=== PATIENT | male | born 1955 | race Two or more races ===

== ENCOUNTER 2019-12-28 08:48 | Inpatient (IN) | payer MEDICARE ==
[~2019-12-28] VITALS: Ht 170.2 cm; Wt 69.0 kg
[2019-12-28 10:26] LABS: Basophils # (auto) 0.1 10 ^3/uL (0-0.2); Basophils % (auto) 0.3 % (0.0-2.0); Eosinophils # (auto) 0 10 ^3/uL (0-0.8); Eosinophils % (auto) 0.1 % (0.0-7.0); Hematocrit 35.3 % (41.0-53.0); Hemoglobin 12.3 g/dL (13.5-17.5); Lymphocytes # (auto) 0.4 10 ^3/uL (0.4-5.4); Lymphocytes % (auto) 2.5 % (10.0-50.0); Mean Corpuscular Hemoglobin 34.4 pg (28.0-32.0); Mean Corpuscular Hgb Conc. 34.9 g/dL (32.0-36.0); Mean Corpuscular Volume 98.5 fL (80.0-100.0); Monocytes # (auto) 0.6 10 ^3/uL (0-1.3); Monocytes % (auto) 3.8 % (0.0-12.0); Neutrophils # (auto) 14.9 10 ^3/uL (1.6-8.6); Neutrophils % (auto) 93.3 % (37.0-80.0); Platelet Count (auto) 362 10^3/uL (140-450); Red Blood Cells 3.58 10^6/uL (4.5-5.90); Red Cell Distribution Width 14.1 % (11.8-14.3)
[2019-12-28 10:45] LABS: Albumin 2.9 g/dL (3.4-5.0); Anion Gap 9 (5-15); Blood Urea Nitrogen 8 mg/dL (7-18); Calcium 9.1 mg/dL (8.5-10.1); Carbon Dioxide 23 mmol/L (21-32); Chloride 94 mmol/L (98-107); Glucose 134 mg/dL (74-106); Lipase 96 U/L (73-393); Potassium 3.5 mmol/L (3.5-5.1); Sodium 126 mmol/L (136-145)
[2019-12-28 10:53] LABS: Alanine Aminotransferase 128 U/L (16-61); Alkaline Phosphatase 658 U/L (45-117); Aspartate Aminotransferase 212 U/L (15-37); BUN/Creatinine Ratio 7.1; Bilirubin, Total 6.3 mg/dL (0.2-1.0); GFR African American 83 mL/min; GFR Non-African American 69 mL/min; Total Protein 7.6 g/dL (6.4-8.2)
[2019-12-28] MEDS ORDERED: SODIUM CHLORIDE 0.9% 1,000 ML IV ONE (17:00)
[2019-12-28] MEDS ORDERED: cefTRIAXone 1GM/50ML D5W 50 ML IV ONE ×2 (17:00→17:15)
[2019-12-28] MEDS ORDERED: ALUM & MAG HYDROX-SIMETH LIQ(MAALOX) 30 ML PO PRN (17:15)
[2019-12-28] MEDS: SODIUM CHLORIDE 0.9% 1,000 ML IV SCH (17:15)
[2019-12-28] MEDS ORDERED: ACETAMINOPHEN 325 MG TAB PO PRN (17:15)
[2019-12-28] MEDS ORDERED: LORazepam 0.5 MG TAB PO PRN (17:15)
[2019-12-28] MEDS ORDERED: HYDROcodone-ACET 5/325MG TAB PO PRN (17:15)
[2019-12-28] MEDS ORDERED: LACTATED RINGER'S 1,000 ML IV ONE (17:15)
[2019-12-28] MEDS ORDERED: DOCUSATE SOD 100 MG CAP PO PRN (17:15)
[2019-12-28] MEDS ORDERED: MORPHINE SULF INJ 2 MG/ML SYRINGE 1ML IV PRN ×2 (17:15)
[2019-12-28] MEDS ORDERED: NITROGLYCERIN 0.4 MG SL TAB SL PRN (17:15)
[2019-12-28] MEDS ORDERED: ONDANSETRON HCL 4 MG/2 ML VIAL IV PRN (17:15)
[2019-12-28] MEDS ORDERED: metroNIDAZOLE 500MG/100ML 100 ML IV ONE (18:00)
[2019-12-28] MEDS ORDERED: PANTOPRAZOLE 40 MG/10 ML VIAL INJ IV ONE (18:30)
[2019-12-28] MEDS ORDERED: SUCRALFATE 1 GM TAB PO ONE (18:30)
[2019-12-28] MEDS ORDERED: CHOLESTYRAMINE 4 GM POWDER PO ONE (18:30)
--- NOTE | 2019-12-28 18:30 | NUR ---
Telemetry admit from [facility] admitted to Telemetry unit after SBAR received. Patient oriented to DARIO VALLE, RN primary RN, unit, room, bed, and unit policies regarding patient care and visiting hours. Patient now on continuous telemetry monitoring, tele box # [id number] and telemetry reading on arrival to unit is ST. Patient weighed by bedscale and encouraged to call if they need something. All questions and concerns addressed, patient verbalized understanding.
--- NOTE | 2019-12-28 18:52 | NUR ---
ADMISSION PATIENT REPORTS "NOT TAKING ANY HOME MEDICATIONS" NOTIFIED PRIMARY RN
[2019-12-28] MEDS ORDERED: INFLUENZA QUAD 2020-2021 0.5 ML SYRG IM ONE (19:00)
[2019-12-28 19:10] VITALS: BP 144/60
--- NOTE | 2019-12-28 19:30 | NUR ---
Opening Shift Note Assumed care of patient, awake and alert. No S/S of distress/SOB or pain. Safety measures in place, bed in lowest locked position, bed rails raised x2, call light within reach. Pt states the abd pain has subsided at this time. All needs and questions addresed at this time. Instructed on POC and to call for assist PRN, will continue to monitor for changes Q1hr and PRN.
[2019-12-28 22:00] VITALS: BP 126/74
[2019-12-28] MEDS ORDERED: IPRATROPIUM BROM 0.5 MG/2.5ML INH SOL NEB SCH (22:00)
[2019-12-28] MEDS ORDERED: ATORVASTATIN 20 MG TAB PO SCH (22:00)
[2019-12-28] MEDS: SUCRALFATE 1 GM TAB PO SCH (22:06)
[2019-12-28 22:37] LABS: Cholesterol 125 mg/dL (< 200); HDL Cholesterol 14 mg/dL (40-59); LDL Cholesterol 87 mg/dL (< 100); Triglycerides 94 mg/dL (< 150)
[2019-12-28] MEDS ORDERED: IPRATROPIUM BROM 0.5 MG/2.5ML INH SOL NEB PRN (23:30)
[2019-12-29 05:00] VITALS: BP 139/80
[2019-12-29] MEDS: metroNIDAZOLE 500MG/100ML 100 ML IV SCH ×3 (06:29→22:00)
[2019-12-29] MEDS: SUCRALFATE 1 GM TAB PO SCH ×4 (06:30→22:00)
--- NOTE | 2019-12-29 07:45 | NUR ---
Opening Shift Note Assumed care of patient, awake and alert. No S/S of distress/SOB or pain. Instructed on POC and to call for assist PRN, will continue to monitor for changes Q1hr and PRN. Fall precautions in place per safety protocol.
[2019-12-29 08:04] VITALS: BP 122/71
--- NOTE | 2019-12-29 09:33 | NUR ---
ASSESSED PT FOR PRN MED NEB TX, PT AWAKE AND ALERT AND FOLLOWING COMMANDS. PT ON RA WITH SPO2 99%, HR 71, RR 15 WITH CLEAR DIMINISHED BS. MED NEB NOT INDICATED AT THIS TIME. ATROVENT PRN WILL BE DC'D DUE TO PT NOT TAKING PRN MED NEB IN 24HRS.
[2019-12-29 09:46] LABS: INR 0.98 (0.9-1.15); Partial Thromboplastin Time 24.7 sec (23.0-31.2)
[2019-12-29] MEDS: SODIUM CHLORIDE 0.9% 1,000 ML IV SCH (09:55)
[2019-12-29] MEDS: ENOXAPARIN SOD 40 MG/0.4 ML SYRINGE SC SCH (10:00)
[2019-12-29] MEDS: cefTRIAXone 1GM/50ML D5W 50 ML IV SCH (10:09)
[2019-12-29] MEDS: PANTOPRAZOLE 40 MG/10 ML VIAL INJ IV SCH (10:10)
[2019-12-29] MEDS: CHOLESTYRAMINE 4 GM POWDER PO SCH (11:00)
[2019-12-29 12:17] LABS: Urine Bacteria FEW /hpf (None Seen); Urine Blood Negative /uL (Negative); Urine Specific Gravity 1.008 (1.001-1.035); Urine WBC 1 /hpf (0 - 3)
[2019-12-29 12:26] LABS: Alcohol, Urine < 3.0 mg/dL (0-10); Amphetamine Screen, Urine NEGATIVE (NEGATIVE); Barbiturate Scree,Urine NEGATIVE (NEGATIVE); Benzodiazephine Screen, Urine NEGATIVE (NEGATIVE); Cannabinoid Screen, Urine NEGATIVE (NEGATIVE); Cocaine Screen, Urine NEGATIVE (NEGATIVE); Opiate Scree,Urine NEGATIVE (NEGATIVE); Phencyclidine Screen, Urine NEGATIVE (NEGATIVE)
[2019-12-29 12:30] VITALS: BP 141/82
--- NOTE | 2019-12-29 15:57 | NUR ---
ss consult Per consult no pcp. Twila Lopez seen patient aand set patient up with Dr Guy for new PCP. Addendum: 12/29/19 at 1558 by Twila Bazzi Amended: Links added.
[2019-12-29 16:24] VITALS: BP 136/86
--- NOTE | 2019-12-29 19:40 | NUR ---
Opening Shift Note Assumed care of patient. Pt is sleeping comfortably in bed, on room air with even and unlabored respirations. No S/S of distress/SOB or pain. Bed locked, in lowest position, call light within reach, side rails up x2. Will continue to monitor for changes Q1hr and PRN.
[2019-12-29 22:00] VITALS: BP 147/58
[2019-12-30] MEDS: SODIUM CHLORIDE 0.9% 1,000 ML IV SCH ×2 (03:00→21:03)
[2019-12-30 05:00] VITALS: BP 135/71
[2019-12-30] MEDS: SUCRALFATE 1 GM TAB PO SCH ×4 (06:35→21:36)
[2019-12-30] MEDS: metroNIDAZOLE 500MG/100ML 100 ML IV SCH ×3 (06:35→21:35)
[2019-12-30 08:16] VITALS: BP 149/79
[2019-12-30] MEDS: ENOXAPARIN SOD 40 MG/0.4 ML SYRINGE SC SCH (10:00)
[2019-12-30] MEDS: cefTRIAXone 1GM/50ML D5W 50 ML IV SCH (10:07)
[2019-12-30] MEDS: PANTOPRAZOLE 40 MG/10 ML VIAL INJ IV SCH (10:08)
[2019-12-30] MEDS: CHOLESTYRAMINE 4 GM POWDER PO SCH (11:00)
[2019-12-30 11:54] VITALS: BP 144/78
--- NOTE | 2019-12-30 12:14 | NUR ---
Nutrition Assessment Est energy needs 6182-8990 kcal (25-30 kcal/kg BW 66.3kg) Est protein needs 53-66g (0.8-1g/kg BW 66.3kg) Will monitor and reassess prn. Addendum: 12/30/19 at [address] Amended: Links added.
--- NOTE | 2019-12-30 14:06 | NUR ---
ERCP ERCP rescheduled for tomorrow 12/30. Patient placed on a clear liquid diet and informed patient. Will cont to monitor patient.
[2019-12-30 16:35] VITALS: BP 164/76
[2019-12-31 05:00] VITALS: BP 158/83
[2019-12-31] MEDS: SUCRALFATE 1 GM TAB PO SCH ×4 (06:53→21:38)
[2019-12-31] MEDS: metroNIDAZOLE 500MG/100ML 100 ML IV SCH ×3 (06:53→21:38)
[2019-12-31 08:40] VITALS: BP 148/73
--- NOTE | 2019-12-31 08:40 | NUR ---
Dr. Benitez at bed side
[2019-12-31] MEDS: PANTOPRAZOLE 40 MG/10 ML VIAL INJ IV SCH (08:56)
[2019-12-31] MEDS: cefTRIAXone 1GM/50ML D5W 50 ML IV SCH (08:57)
[2019-12-31] MEDS: ENOXAPARIN SOD 40 MG/0.4 ML SYRINGE SC SCH (08:57)
[2019-12-31] MEDS: CHOLESTYRAMINE 4 GM POWDER PO SCH (08:58)
[2019-12-31] MEDS: SODIUM CHLORIDE 0.9% 1,000 ML IV SCH (12:02)
[2019-12-31 12:49] VITALS: BP 154/84
[2019-12-31] MEDS ORDERED: IOHEXOL 300 MG/ML 100ML BOTTLE IJ ONE (14:27)
--- NOTE | 2019-12-31 14:41 | NUR ---
Patient taken for scheduled procedure with MD Marcus by PACU RNs. No s/s of pain/sob or discomfort
[2019-12-31] MEDS ORDERED: SUCCINYLCHOLINE CHLORIDE 20 MG/ML 10ML VIAL IV ONE (15:18)
[2019-12-31] MEDS ORDERED: fentaNYL CITRATE 100 MCG/2 ML VL ONE (15:19)
[2019-12-31] MEDS ORDERED: MIDAZOLAM HCL 1MG/1ML-2 ML VIAL ONE (15:20)
[2019-12-31] MEDS ORDERED: ROCURONIUM 10MG/ML 10ML VIAL IV ONE (15:24)
[2019-12-31] MEDS ORDERED: PROPOFOL 10 MG/ML 20 ML IV ONE (16:13)
[2019-12-31] MEDS ORDERED: ONDANSETRON HCL 4 MG/2 ML VIAL ONE (16:13)
[2019-12-31] MEDS ORDERED: GLYCOPYRROLATE 0.2 MG/ML 1ML VIAL ONE (16:57)
[2019-12-31] MEDS ORDERED: NEOSTIGMINE 1 MG/ML INJ (10mg/10ML VIAL) ONE (16:57)
[2019-12-31] MEDS ORDERED: hydrALAZINE HCL 20 MG/ML VL IV PRN (17:00)
[2019-12-31] MEDS ORDERED: HYDROmorphone HCL 2 MG/ML VL IV PRN ×2 (17:00)
[2019-12-31] MEDS ORDERED: METOCLOPRAMIDE HCL 5MG/ml INJ 2ml VIAL IV PRN (17:00)
[2019-12-31] MEDS ORDERED: LABETALOL HCL 5 MG/ML 4ML SYRINGE IV PRN (17:00)
[2019-12-31] MEDS: hydrALAZINE HCL 25 MG TAB PO PRN (17:57)
--- NOTE | 2019-12-31 19:15 | NUR ---
OPENING SHIFT NOTE Assumed care of patient who is alert and oriented currently on RA with no S/S of distress or SOB noted at this time. Denies any pain at this time. Currently running NS @60mls/hr, IV is patent and intact. POC discussed with patient in detail, all questions answered, patient verbalized understanding. Patient encouraged to call for assistance as needed. Patient is ambulatory without assistance. Bed locked in lowest position side rails up x2. Call light within reach. Will continue to monitor PRN/Q1hr.
--- NOTE | 2019-12-31 21:00 | NUR ---
IV REMOVAL Patient complained of IV leaking, upon assessment IV had become dislodged. IV DC'd with clean sterile technique, catheter fully intact. Pressure dressing applied to site. Patient tolerated well.
--- NOTE | 2019-12-31 21:10 | NUR ---
IV INSERTION IV access obtained, via clean sterile technique by inserting 20 gauge catheter at the left AC after 1 attempt. IV secured properly. No trauma to site. Patient tolerated well.
[2019-12-31 22:51] VITALS: BP 138/84
[2020-01-01] MEDS: SODIUM CHLORIDE 0.9% 1,000 ML IV SCH (04:35)
[2020-01-01 05:28] VITALS: BP 145/78
[2020-01-01] MEDS: metroNIDAZOLE 500MG/100ML 100 ML IV SCH ×3 (05:39→21:32)
[2020-01-01] MEDS: SUCRALFATE 1 GM TAB PO SCH ×4 (06:31→21:31)
[2020-01-01 06:56] LABS: Albumin 2.3 g/dL (3.4-5.0); Calcium 8.1 mg/dL (8.5-10.1); Potassium 3.3 mmol/L (3.5-5.1)
[2020-01-01 06:59] LABS: BUN/Creatinine Ratio 6.8
[2020-01-01 07:02] LABS: Bilirubin, Total 2.1 mg/dL (0.2-1.0); Total Protein 6.2 g/dL (6.4-8.2)
--- NOTE | 2020-01-01 07:32 | NUR ---
CARE ENDORSED TO DAY SHIFT RN
--- NOTE | 2020-01-01 08:15 | NUR ---
OPENING SHIFT NOTE: PATIENT RESTING IN BED, A/OX4 UPDATED ON PLAN OF CARE. VERBALIZED UNDERSTANDING. DENIES ANY PAIN OR DISCOMFORT AT THIS TIME. CALL LIGHT WITHIN REACH, WILL CONTINUE TO MONITOR.
[2020-01-01] MEDS: cefTRIAXone 1GM/50ML D5W 50 ML IV SCH (08:45)
[2020-01-01] MEDS: ENOXAPARIN SOD 40 MG/0.4 ML SYRINGE SC SCH (08:46)
[2020-01-01] MEDS: PANTOPRAZOLE 40 MG/10 ML VIAL INJ IV SCH (08:46)
[2020-01-01] MEDS: CHOLESTYRAMINE 4 GM POWDER PO SCH (08:47)
[2020-01-01 09:00] VITALS: BP 146/78
--- NOTE | 2020-01-01 09:50 | NUR ---
CALL FROM DR. Garrett MOORE: NOTIFIED OF LIPASE LEVEL, MD WOULD LIKE TO LET DR. HI KNOW "PATIENT IS CLEARED BY GI FOR GALLBLADDER REMOVAL SURGERY, AND THAT A STENT WAS PLACED, SO THE PATIENT WILL NEED TO FOLLOW UP WITH HIM SINCE THE STONE WAS TOO BIG." THIS RN MADE PATIENT AWARE PLAN OF CARE.
--- NOTE | 2020-01-01 11:22 | NUR ---
PATIENT SCHEDULED FOR [facility]: PER DR. Torito PADRON, CONFIRMED WITH DR. HI PATIENT TO BE NPO AFTER MIDNIGHT FOR [facility] TOMORROW -.
[2020-01-01 12:39] VITALS: BP 149/79
--- NOTE | 2020-01-01 14:16 | NUR ---
Nutrition Followup Note Wt 73.5kg Pt was sleeping at time of rounds with no family at bedside. Pt is NPO d/t to pt went for ERCP and was to have stone removed, per MD note stone too big and pt now scheduled for lap viviane 01/01. Pt is still NPO for procedure tomorrow. Pt appetite appears to be good aeb pt with 100% x 2 when pt diet was able to be adv to [facility]. Est energy needs 3863-1950 kcal (25-30 kcal/kg BW 66.3kg) Est protein needs 53-66g (0.8-1g/kg BW 66.3kg) Will monitor and reassess prn. Labs: Na 131L, Ca 8.1L, T bili 2.1H, Alb 2.3L BM: pt with no BM noted per Rn note Skin: BS 21 low risk, full details in career technology teacher note PES Inadequate oral intake r/t current medical condition aeb pt with NPO diet order Comments: 1) Continue to monitor po intake, labs, skin 2) refer pt to [facility] on DC 3) Continue current plan of care Expected Outcomes/Goals: 1) pt diet to advance and pt to tolerate diet 2) pt to consume >75% of po intake 3) f/u 2-3 days
[2020-01-01] MEDS: SOD CHL 0.9%/ KCL 20MEQ 1,000 ML IV SCH ×2 (15:03→23:30)
[2020-01-01 17:00] VITALS: BP 144/73
--- NOTE | 2020-01-01 18:53 | NUR ---
care endorsed to jonn recio.
--- NOTE | 2020-01-01 19:15 | NUR ---
OPENING SHIFT NOTE Assumed care of patient who is alert and oriented currently on RA with no S/S of distress or SOB noted at this time. Denies any pain at this time. POC discussed with patient in detail, all questions answered, patient verbalized understanding. Patient encouraged to call for assistance as needed. Patient is ambulatory without assistance. Bed locked in lowest position side rails up x2. Call light within reach. Will continue to monitor PRN/Q1hr.
[2020-01-01 21:47] VITALS: BP 131/70
[2020-01-02] VITALS (7 sets, daily range): BP systolic 133–177; BP diastolic 78–93
[2020-01-02] MEDS: metroNIDAZOLE 500MG/100ML 100 ML IV SCH ×3 (05:36→21:23)
[2020-01-02] MEDS: SUCRALFATE 1 GM TAB PO SCH ×4 (06:19→21:23)
--- NOTE | 2020-01-02 07:21 | NUR ---
CARE ENDORSED TO DAY SHIFT RN
[2020-01-02] MEDS: ENOXAPARIN SOD 40 MG/0.4 ML SYRINGE SC SCH (07:31)
--- NOTE | 2020-01-02 08:14 | NUR ---
Patient left to OR, quality technician notified.
[2020-01-02] MEDS ORDERED: ONDANSETRON HCL 4 MG/2 ML VIAL IV PRN (09:00)
[2020-01-02] MEDS ORDERED: LABETALOL HCL 5 MG/ML 4ML SYRINGE IV PRN (09:00)
[2020-01-02] MEDS ORDERED: MIDAZOLAM HCL 1MG/1ML-2 ML VIAL IV PRN (09:00)
[2020-01-02] MEDS ORDERED: ePHEDrine SULFATE 50 MG/ML AMP IV PRN (09:00)
[2020-01-02] MEDS ORDERED: MORPHINE SULFATE 4 MG/ML SYR/VIAL IV PRN (09:00)
[2020-01-02] MEDS ORDERED: HYDROmorphone HCL 2 MG/ML VL IV PRN (09:00)
[2020-01-02] MEDS ORDERED: MIDAZOLAM HCL 1MG/1ML-2 ML VIAL ONE (09:08)
[2020-01-02] MEDS ORDERED: fentaNYL CITRATE 100 MCG/2 ML VL ONE (09:08)
[2020-01-02] MEDS ORDERED: MEPERIDINE HCL (50 MG/ML) 1 ML VIAL ONE (09:08)
[2020-01-02] MEDS ORDERED: ceFAZolin 1GM/50ML 50 ML IV ONE (09:17)
[2020-01-02] MEDS ORDERED: SUCCINYLCHOLINE CHLORIDE 20 MG/ML 10ML VIAL IV ONE (09:29)
[2020-01-02] MEDS ORDERED: PROPOFOL 10 MG/ML 20 ML IV ONE (09:40)
[2020-01-02] MEDS ORDERED: DexAMETHasone SOD PHOS 10MG/1ML VIAL INJ ONE (09:40)
[2020-01-02] MEDS ORDERED: ROCURONIUM 10MG/ML 10ML VIAL IV ONE (09:41)
[2020-01-02] MEDS ORDERED: GLYCOPYRROLATE 0.2 MG/ML 1ML VIAL ONE (10:49)
[2020-01-02] MEDS ORDERED: NEOSTIGMINE 1 MG/ML INJ (10mg/10ML VIAL) ONE (10:49)
--- NOTE | 2020-01-02 11:00 | NUR ---
assessment Patient is down for Neida Coli at this time. I will come back for assessment later. Addendum: 01/02/20 at 1524 by Twila GRIGGS Amended: Links added.
[2020-01-02] MEDS: CHOLESTYRAMINE 4 GM POWDER PO SCH (11:33)
[2020-01-02] MEDS: cefTRIAXone 1GM/50ML D5W 50 ML IV SCH (11:33)
[2020-01-02] MEDS: PANTOPRAZOLE 40 MG/10 ML VIAL INJ IV SCH (11:33)
[2020-01-02] MEDS: SOD CHL 0.9%/ KCL 20MEQ 1,000 ML IV SCH ×2 (11:34→20:35)
--- NOTE | 2020-01-02 11:37 | NUR ---
Patient came back from OR. Awake, alert, oriented x 4 and verbally responsive. No respiratory distress noted. Skin is warm and dry to touch. S/p Lap viviane, 3 incisions to abdomen dry and intact with abdominal binder on. Denied any pain at this time. Placed a call light within reach, will continue to monitor.
--- NOTE | 2020-01-02 15:24 | NUR ---
IS at bedside, teaching explained, patient verbalized understanding.
[2020-01-02] MEDS: hydrALAZINE HCL 25 MG TAB PO PRN (17:11)
--- NOTE | 2020-01-02 20:15 | NUR ---
Opening Shift Note Assumed care of patient, awake and alert. No S/S of distress/SOB or pain. Instructed on POC and to call for assist PRN, will continue to monitor for changes Q1hr and PRN.Patient incisions are intact and asymptomatic. ABD binder in place and patient verbalized understanding of how to use IS. Bed in low position and call light within reach. patient educated on maintaining upper side rails up for patient safety patient verbalized understanding and stated he would like to have one side rail down.
[2020-01-03 05:00] VITALS: BP 146/79
[2020-01-03] MEDS: SOD CHL 0.9%/ KCL 20MEQ 1,000 ML IV SCH ×2 (05:30→16:35)
[2020-01-03 05:47] LABS: Basophils # (auto) 0 10 ^3/uL (0-0.2); Basophils % (auto) 0.2 % (0.0-2.0); Eosinophils # (auto) 0 10 ^3/uL (0-0.8); Eosinophils % (auto) 0.1 % (0.0-7.0); Monocytes # (auto) 0.8 10 ^3/uL (0-1.3); Neutrophils # (auto) 7.2 10 ^3/uL (1.6-8.6)
[2020-01-03 05:50] LABS: Hematocrit 32.7 % (41.0-53.0); Hemoglobin 11.4 g/dL (13.5-17.5); Lymphocytes # (auto) 2.2 10 ^3/uL (0.4-5.4); Lymphocytes % (auto) 21.6 % (10.0-50.0); Mean Corpuscular Hemoglobin 34.9 pg (28.0-32.0); Mean Corpuscular Volume 99.7 fL (80.0-100.0); Monocytes % (auto) 8.1 % (0.0-12.0); Platelet Count (auto) 333 10^3/uL (140-450); Red Blood Cells 3.28 10^6/uL (4.5-5.90); Red Cell Distribution Width 14.5 % (11.8-14.3); White Blood Cell 10.3 10^3/uL (4.4-10.8)
[2020-01-03] MEDS: metroNIDAZOLE 500MG/100ML 100 ML IV SCH ×3 (05:56→21:15)
--- NOTE | 2020-01-03 06:20 | NUR ---
IV removal/IV access IV DC'd with clean sterile technique, catheter fully intact. Pressure dressing applied to site. Patient tolerated well.IV insertion/IV access obtained, via clean sterile technique by inserting 22 gauge catheter at right ac after 1 attempt. IV secured properly. No trauma to site. Patient tolerated well.
[2020-01-03] MEDS: SUCRALFATE 1 GM TAB PO SCH ×4 (06:21→21:15)
--- NOTE | 2020-01-03 07:05 | NUR ---
REPORT GIVEN TO DAYSHIFT RN PATIENT DENIES SOB DISTRESS OR PAIN
[2020-01-03 09:00] VITALS: BP 156/90
[2020-01-03] MEDS: cefTRIAXone 1GM/50ML D5W 50 ML IV SCH (09:16)
[2020-01-03] MEDS: PANTOPRAZOLE 40 MG/10 ML VIAL INJ IV SCH (09:16)
[2020-01-03] MEDS: ENOXAPARIN SOD 40 MG/0.4 ML SYRINGE SC SCH (09:17)
--- NOTE | 2020-01-03 11:22 | NUR ---
Dr. Benitez at bedside discussed with patient, received new order to advance diet as tolerated. Noted and carried it out.
[2020-01-03] MEDS: CHOLESTYRAMINE 4 GM POWDER PO SCH (11:38)
[2020-01-03] MEDS: hydrALAZINE HCL 25 MG TAB PO PRN ×2 (11:39→21:28)
--- NOTE | 2020-01-03 11:51 | NUR ---
Assessment Regarding social service consult for living situation. Patient is a 64-year-old male who is alert and oriented. Prior to admission patient lived home with family and functioned independently. Per patient he can care for his own ADLs. Patient does not have any medical equipment now. Patient states he came to the hospital for abdominal pain due to gallstone. Per patient he will return home to his prior living arrangements post discharge and family will transport him home. Patient states he feels safe returning home and has great family support. Informed patient he has the right to participate in all discharge planning. Patient verbalized understanding and agreed to discharge plan. Informed Dr. Emmanuel MATHEW. Addendum: 01/03/20 at 1153 by GENET YOUNG Amended: Links added.
[2020-01-03 12:00] VITALS: BP 160/89
[2020-01-03 12:40] VITALS: BP 139/83
--- NOTE | 2020-01-03 15:33 | NUR ---
Nutrition Followup Notes Wt 73.2 kg Pt was sleeping at time of rounds with no family at bedside. Pt diet is advance to a Regular diet today per RN note. PO intake has not yet been recorded after diet upgrade. Est energy needs 0314-4404 kcal (25-30 kcal/kg BW 66.3kg) Est protein needs 53-66g (0.8-1g/kg BW 66.3kg) Will monitor and reassess prn. Labs: Ca 8.1 L, Bili 1.8 H, AST 51 H, Alk Phos 293 H, Alb 2.3 L BM: Pt with daily BM noted per RN note Skin: BS 22 low risk, full details in home care scheduler note PES: Inadequate oral intake r/t current medical condition aeb pt with NPO diet order Comments: Will continue to monitor PO status, skin status, pertinent labs and weight trends. Will f/u in 3-5 days 1) Continue to monitor PO intake, labs, skin 2) refer pt to [facility] on DC 3) Continue current plan of care
[2020-01-03 17:00] VITALS: BP 152/84
--- NOTE | 2020-01-03 19:30 | NUR ---
Opening Shift Note Assumed care of patient, awake and alert. No S/S of distress/SOB or pain. Instructed on POC and to callfor assist PRN, will continue to monitor for changes Q1hr and PRN.
[2020-01-03 22:00] VITALS: BP 156/92
[2020-01-04] MEDS: SOD CHL 0.9%/ KCL 20MEQ 1,000 ML IV SCH ×3 (01:16→21:36)
[2020-01-04 05:00] VITALS: BP 162/95
[2020-01-04] MEDS: metroNIDAZOLE 500MG/100ML 100 ML IV SCH ×3 (05:11→21:36)
[2020-01-04] MEDS: hydrALAZINE HCL 25 MG TAB PO PRN (06:02)
[2020-01-04] MEDS: SUCRALFATE 1 GM TAB PO SCH ×4 (06:02→21:37)
--- NOTE | 2020-01-04 07:30 | NUR ---
closing note endorsed care to day RN, no sign of distress/pain at this time
--- NOTE | 2020-01-04 07:50 | NUR ---
Received call from tele monitor unit to report pt's HR to the 190s, v/s taken 123/81, hr 140s to 170s, O2 sat 94% at RA, temp 98.0, pt is asymptomatic, no pain, sob, or any discomfort reported, EKG done. paged hospitalist.
--- NOTE | 2020-01-04 08:09 | NUR ---
Received call back from YAYA John hospitalist, doctor informed that pt had a rhythm change, pt's HR increased to 190 and it has been sustaining in the 160s to 180s, EKG done and it showed A.Fib, pt was sinus rhythm through out the night. Orders received for cardizem 10 mg iv x1, bolus ns of 500 ml, cardiology consult, troponin level. will follow orders.
[2020-01-04] MEDS ORDERED: dilTIAZem 25 MG/5 ML VIAL IV ONE (08:15)
[2020-01-04] MEDS ORDERED: SODIUM CHLORIDE 0.9% 500 ML IV ONE (08:15)
[2020-01-04 09:00] VITALS: BP 123/81
--- NOTE | 2020-01-04 09:00 | NUR ---
YAYA John called and informed that pt's HR went down to 110s to 130s, pt is asymptomatic, orders received for Metoprolol 25 mg po bid.
--- NOTE | 2020-01-04 09:30 | NUR ---
Dr. Cole / surgeon at bed side to see pt. doctor discussed the plan of care with pt.
[2020-01-04] MEDS: cefTRIAXone 1GM/50ML D5W 50 ML IV SCH (09:42)
[2020-01-04] MEDS: PANTOPRAZOLE 40 MG/10 ML VIAL INJ IV SCH (09:42)
[2020-01-04] MEDS: ENOXAPARIN SOD 40 MG/0.4 ML SYRINGE SC SCH (09:43)
[2020-01-04] MEDS ORDERED: METOPROLOL TARTRATE 25 MG TAB PO SCH (10:00)
--- NOTE | 2020-01-04 11:08 | NUR ---
Dr. Benitez at bed side to see pt, doctor informed that pt converted from SR to A.fib to 190s, pt currently at A.fib 120s, doctor informed that cardiology has not seen pt, doctor will contact the irrigation installation specialist to see pt.
[2020-01-04 11:32] LABS: Eosinophils # (auto) 0.1 10 ^3/uL (0-0.8); Lymphocytes # (auto) 2.2 10 ^3/uL (0.4-5.4); Monocytes # (auto) 0.8 10 ^3/uL (0-1.3); Neutrophils # (auto) 7.1 10 ^3/uL (1.6-8.6); White Blood Cell 10.3 10^3/uL (4.4-10.8)
[2020-01-04 11:34] LABS: Basophils # (auto) 0.1 10 ^3/uL (0-0.2); Basophils % (auto) 0.6 % (0.0-2.0); Eosinophils % (auto) 0.6 % (0.0-7.0); Hematocrit 32.5 % (41.0-53.0); Hemoglobin 11.5 g/dL (13.5-17.5); Lymphocytes % (auto) 21.3 % (10.0-50.0); Mean Corpuscular Hemoglobin 34.9 pg (28.0-32.0); Mean Corpuscular Hgb Conc. 35.3 g/dL (32.0-36.0); Mean Corpuscular Volume 98.9 fL (80.0-100.0); Neutrophils % (auto) 69.5 % (37.0-80.0); Nucleated Red Blood Cells % 0.2 %; Platelet Count (auto) 323 10^3/uL (140-450); Red Blood Cells 3.29 10^6/uL (4.5-5.90); Red Cell Distribution Width 15.1 % (11.8-14.3)
[2020-01-04 11:43] LABS: Albumin 2.4 g/dL (3.4-5.0); Calcium 8.4 mg/dL (8.5-10.1); Potassium 3.4 mmol/L (3.5-5.1)
[2020-01-04 11:47] LABS: BUN/Creatinine Ratio 7.2; Bilirubin, Total 1.7 mg/dL (0.2-1.0); Total Protein 6.4 g/dL (6.4-8.2)
[2020-01-04] MEDS: CHOLESTYRAMINE 4 GM POWDER PO SCH (12:05)
[2020-01-04 17:00] VITALS: BP 144/85
[2020-01-04 21:00] VITALS: BP 130/85
[2020-01-04] MEDS: SOTALOL HCL 80 MG TAB PO SCH (21:36)
[2020-01-05] MEDS: SOD CHL 0.9%/ KCL 20MEQ 1,000 ML IV SCH ×2 (02:19→17:30)
[2020-01-05 05:00] VITALS: BP 159/100
[2020-01-05] MEDS: SUCRALFATE 1 GM TAB PO SCH ×4 (06:00→21:00)
[2020-01-05] MEDS: metroNIDAZOLE 500MG/100ML 100 ML IV SCH ×3 (06:00→21:02)
--- NOTE | 2020-01-05 08:00 | NUR ---
Received pt resting in bed, call light with in reach, pt denies any pain or discomfort at this time, assisted pt our of bed to the restroom, pt's heart rate increased to 160s, pt denied any discomfort, pt back in bed, will continue to monitor pt.
[2020-01-05 09:00] VITALS: BP_SYST 154; BP_SYST 159; BP_DIAS 98
[2020-01-05] MEDS: PANTOPRAZOLE 40 MG/10 ML VIAL INJ IV SCH (10:18)
[2020-01-05] MEDS: SOTALOL HCL 80 MG TAB PO SCH ×2 (10:19→21:01)
[2020-01-05] MEDS: ENOXAPARIN SOD 40 MG/0.4 ML SYRINGE SC SCH (10:19)
[2020-01-05] MEDS: cefTRIAXone 1GM/50ML D5W 50 ML IV SCH (10:19)
[2020-01-05] MEDS: CHOLESTYRAMINE 4 GM POWDER PO SCH (12:11)
[2020-01-05 12:55] VITALS: BP 156/102
[2020-01-05 13:40] VITALS: BP 154/93
[2020-01-05 16:49] VITALS: BP 150/90
--- NOTE | 2020-01-05 19:30 | NUR ---
Opening Shift Note Assumed care of patient, awake and alert. Fall and safety precautions in place. No S/S of distress/SOB or pain. Instructed on POC and to call for assist PRN, patient verbalized understanding and in agreement. Call light within reach and able to use. Will continue to monitor for changes Q1hr and PRN.
--- NOTE | 2020-01-05 20:30 | NUR ---
JEANNETTE VALDOVINOS - REQUEST FLOMAX PATIENT STATING THAT HE NEEDS TO TAKE HIS MEDICATION FLOMAX. PATIENT INFORMED THAT THIS NADIR WOULD CALL WITH PATIENT REQUEST. PAGED ARUNA AT THIS TIME. LEFT IZZY AND CALL BACK NUMBER WITH ARUNA'S ANSWERING PROVIDER. AWAITING CALL BACK. WILL CONTINUE TO MONITOR. Addendum: 01/05/20 at 9266 by HAO THORNTON RN RN WRONG PATIENT
[2020-01-05 21:00] VITALS: BP 150/102
[2020-01-05] MEDS: AMIODARONE HCL 200 MG TAB PO SCH (21:01)
[2020-01-05] MEDS: APIXABAN 5 MG TAB PO SCH (21:02)
[2020-01-06] MEDS: SOD CHL 0.9%/ KCL 20MEQ 1,000 ML IV SCH ×2 (03:30→14:04)
[2020-01-06 05:00] VITALS: BP 147/93
[2020-01-06] MEDS: metroNIDAZOLE 500MG/100ML 100 ML IV SCH (05:20)
[2020-01-06] MEDS: SUCRALFATE 1 GM TAB PO SCH ×4 (06:11→21:17)
--- NOTE | 2020-01-06 08:15 | NUR ---
Received pt resting in bed, call light with in reach, no pain or distress noted or reported at this time, will continue to monitor pt.
[2020-01-06 08:30] VITALS: BP 153/105
[2020-01-06] MEDS: PANTOPRAZOLE 40 MG/10 ML VIAL INJ IV SCH (09:27)
[2020-01-06] MEDS: cefTRIAXone 1GM/50ML D5W 50 ML IV SCH (09:27)
[2020-01-06] MEDS: SOTALOL HCL 80 MG TAB PO SCH ×2 (09:28→21:16)
[2020-01-06] MEDS: APIXABAN 5 MG TAB PO SCH ×2 (09:29→21:15)
[2020-01-06] MEDS: AMIODARONE HCL 200 MG TAB PO SCH ×2 (09:29→21:17)
[2020-01-06] MEDS: CHOLESTYRAMINE 4 GM POWDER PO SCH (11:19)
--- NOTE | 2020-01-06 11:32 | NUR ---
Dr. Benitez at bed side to see pt, doctor discussed the plan of care with pt.
--- NOTE | 2020-01-06 13:20 | NUR ---
Ambulated pt around the station, no distress noted, no sob, no dizziness, pt's hr increased to low 130s, pt back in the room, pt's hr decreased to 90s, call light with in reach, will continue to monitor pt.
[2020-01-06 13:30] VITALS: BP 151/98
[2020-01-06] MEDS: metroNIDAZOLE 500 MG TAB PO SCH ×2 (14:04→21:17)
--- NOTE | 2020-01-06 14:26 | NUR ---
Nutrition Followup Notes Wt 73.2 kg Pt was sleeping at time of rounds with no family at bedside. pt is currently on cardiac diet with adequate PO of > 75% x 4 per RN doc. pt had sx on 01/01 per records Est energy needs 0925-2741 kcal (25-30 kcal/kg BW 66.3kg) Est protein needs 53-66g (0.8-1g/kg BW 66.3kg) Will monitor and reassess prn. Labs: GLU 121 H ALB 2.4 L PENNY 1.7 H BM: Pt with daily BM noted per RN note Skin: BS 22 low risk, full details in rn coronary care unit note PES: Inadequate oral intake r/t current medical condition aeb pt with NPO diet order Comments: Will continue to monitor PO status, skin status, pertinent labs and weight trends. Will f/u in 3-5 days 1) Continue to monitor PO intake, labs, skin 2) refer pt to [facility] on DC 3) Continue current plan of care
--- NOTE | 2020-01-06 16:27 | NUR ---
NURSING AMBULATED PATIENT. PATIENT DID WELL. NO NEED FOR P.T. INTERVENTION UNLESS CONDITION CHANGES.
[2020-01-06 16:30] VITALS: BP 152/84
--- NOTE | 2020-01-06 19:35 | NUR ---
Opening Shift Note Assumed care of patient, AOx4. Fall and safety precautions in place. No S/S of distress/SOB. Instructed on POC and to call for assist PRN, patient verbalized understanding and in agreement. Call light within reach and able to use. Will continue to monitor for changes Q1hr and PRN.
[2020-01-06 21:46] VITALS: BP 151/85
[2020-01-07] MEDS: SOD CHL 0.9%/ KCL 20MEQ 1,000 ML IV SCH ×2 (00:03→09:30)
[2020-01-07 04:59] VITALS: BP 161/94
[2020-01-07] MEDS: metroNIDAZOLE 500 MG TAB PO SCH ×2 (05:09→14:00)
[2020-01-07] MEDS: hydrALAZINE HCL 25 MG TAB PO PRN (05:10)
--- NOTE | 2020-01-07 05:10 | NUR ---
HIGH BP PATIENT'S BLOOD PRESSURE 161/94 MMHG, HEART RATE 75 BPM. PRN MED GIVEN ORDERED (SEE EMAR FOR ADMINISTRATION). WILL CONTINUE TO MONITOR.
[2020-01-07] MEDS: SUCRALFATE 1 GM TAB PO SCH ×2 (06:08→11:30)
[2020-01-07 06:10] VITALS: BP 129/77
--- NOTE | 2020-01-07 06:10 | NUR ---
BP RECHECK PATIENT'S BLOOD PRESSURE NOW 129/77 MMHG, HEART RATE 74 BPM. WILL CONTINUE TO MONITOR.
[2020-01-07 08:00] VITALS: BP 126/80
[2020-01-07 09:00] VITALS: BP 126/80
[2020-01-07] MEDS ORDERED: levoFLOXacin 500 MG TAB PO SCH (10:00)
[2020-01-07] MEDS: PANTOPRAZOLE 40 MG/10 ML VIAL INJ IV SCH (10:07)
[2020-01-07] MEDS: AMIODARONE HCL 200 MG TAB PO SCH (10:07)
[2020-01-07] MEDS: APIXABAN 5 MG TAB PO SCH (10:08)
[2020-01-07] MEDS: SOTALOL HCL 80 MG TAB PO SCH (10:09)
[2020-01-07] MEDS: CHOLESTYRAMINE 4 GM POWDER PO SCH (11:00)
[2020-01-07 12:57] VITALS: BP 126/80
[2020-01-07 13:00] VITALS: BP 139/85
[2020-01-07] MEDS ORDERED: IOHEXOL 350 MG/ML 100ML IJ ONE (13:31)
--- NOTE | 2020-01-07 14:40 | NUR ---
CALLED DR PADRON TO NOTIFY OF CTA RESULTS. PER DR PADRON PATIENT MAY BE DISCHARGED.
--- NOTE | 2020-01-07 15:21 | NUR ---
Discharge instructions given as ordered. Encourage to follow up with PMD as instructed. All questions and concerns addressed. Patient verbalized understanding. Medication reconciliation form completed and copy given to patient. No Home medications held in Pharmacy and none to be returned to patient, and patient refused influenza vaccine. IV removed with catheter intact, pressure dressing applied. Telemetry unit returned to ICU. Patient taken to vehicle via wheelchair with all personal belongings, accompanied by staff and family member. No distress noted at time of departure.
--- NOTE | 2020-01-07 15:22 | NUR ---
PATIENT REFUSED FLU VACCINE ORDERED IN EMAR. PATIENT DID NOT WANT TO WAIT, AND WISHES TO BE DISCHARGED.
[2020-01-12] MEDS ORDERED: APIXABAN 5 MG TAB PO SCH (22:00)
== END 2020-01-07 15:15 | disposition home or self-care (01) | DRG 854 ==
LOC: ER 08:48 → TELE 08:49 → TELE-WESTW 18:30
PROVIDERS: ADMIT Hospitalist; ATTEND Family Medicine
PROC: 0F798DZ Dilation of Common Bile Duct with Intraluminal Device, Via Natural or Artificial Opening Endoscopic (ICD-10-PCS; 2019-12-31)
PROC: BF101ZZ Fluoroscopy of Bile Ducts using Low Osmolar Contrast (ICD-10-PCS; 2019-12-31)
PROC: 0FC98ZZ Extirpation of Matter from Common Bile Duct, Via Natural or Artificial Opening Endoscopic (ICD-10-PCS; 2019-12-31)
PROC: 3E013GC Introduction of Other Therapeutic Substance into Subcutaneous Tissue, Percutaneous Approach (ICD-10-PCS; 2020-01-02)
PROC: 0FT44ZZ Resection of Gallbladder, Percutaneous Endoscopic Approach (ICD-10-PCS; principal; 2020-01-02 09:23)
DX: A41.9 Sepsis, unspecified organism (principal); E87.1 Hypo-osmolality and hyponatremia; K80.62 Calculus of gallbladder and bile duct with acute cholecystitis without obstruction; K70.10 Alcoholic hepatitis without ascites; K29.20 Alcoholic gastritis without bleeding; I10 Essential (primary) hypertension; E78.5 Hyperlipidemia, unspecified; D64.9 Anemia, unspecified; E78.00 Pure hypercholesterolemia, unspecified; F10.10 Alcohol abuse, uncomplicated; E87.6 Hypokalemia; F17.210 Nicotine dependence, cigarettes, uncomplicated; Z20.828 Contact with and (suspected) exposure to other viral communicable diseases; Z79.01 Long term (current) use of anticoagulants; Z79.899 Other long term (current) drug therapy; Z82.49 Family history of ischemic heart disease and other diseases of the circulatory system; Z83.3 Family history of diabetes mellitus; Z91.81 History of falling
CPT/HCPCS: 36415; 71046; 71275; 74018; 74176; 74181; 76001; 76705; 78582; 80053; 80061; 80307; 81001; 82150; 82247; 83036; 83690; 83735; 84484; 85025; 85610; 85730; 86850; 86900; 86901; 87040; 87086; 93005; 93306; 96365; C1726; C9113; G0378; J0330; J0690; J0696; J1100; J2250; J2405; J2704; J3490

== ENCOUNTER → 2020-01-11 | Outpatient (CLI) | payer MEDICARE ==
[2020-01-11 11:43] LABS: Eosinophils # (auto) 0.2 10 ^3/uL (0-0.8); Mean Corpuscular Hemoglobin 34.5 pg (28.0-32.0); Monocytes # (auto) 0.7 10 ^3/uL (0-1.3); Neutrophils # (auto) 3.2 10 ^3/uL (1.6-8.6); Nucleated Red Blood Cells % 0.1 %; Red Cell Distribution Width 15.4 % (11.8-14.3)
[2020-01-11 11:45] LABS: Basophils # (auto) 0.2 10 ^3/uL (0-0.2); Basophils % (auto) 2.5 % (0.0-2.0); Eosinophils % (auto) 3.6 % (0.0-7.0); Hemoglobin 11.5 g/dL (13.5-17.5); Lymphocytes # (auto) 2.2 10 ^3/uL (0.4-5.4); Lymphocytes % (auto) 33.7 % (10.0-50.0); Mean Corpuscular Volume 98.7 fL (80.0-100.0); Monocytes % (auto) 11.4 % (0.0-12.0); Neutrophils % (auto) 48.8 % (37.0-80.0); Platelet Count (auto) 457 10^3/uL (140-450); Red Blood Cells 3.34 10^6/uL (4.5-5.90); White Blood Cell 6.5 10^3/uL (4.4-10.8)
[2020-01-11 12:03] LABS: Albumin 2.9 g/dL (3.4-5.0); BUN/Creatinine Ratio 5.4; Calcium 8.7 mg/dL (8.5-10.1); Potassium 3.6 mmol/L (3.5-5.1)
[2020-01-11 12:07] LABS: Bilirubin, Total 1.1 mg/dL (0.2-1.0); Total Protein 7.3 g/dL (6.4-8.2)
== END | disposition home or self-care (01) ==
LOC: LAB 11:21
PROVIDERS: ATTEND Internal Medicine
DX: I10 Essential (primary) hypertension (principal); Z79.899 Other long term (current) drug therapy
CPT/HCPCS: 36415; 80053; 82306; 85025